=== PATIENT | female | born 1995 | race Caucasian/White ===

== ENCOUNTER 2021-02-26 16:16 | Emergency (ER) | payer OTHER, SELFPAY ==
--- NOTE | ~2021-02-26 | CT_ITS ---
EXAMINATION: CT HEAD WITHOUT CONTRAST CLINICAL INFORMATION: Headache COMPARISON: None TECHNIQUE: Contiguous axial imaging was performed from the skull base to vertex without intravenous administration of contrast. This CT examination was performed using dose optimization techniques as appropriate, variously including the following: *Automated exposure control *Adjustment of mA and/or kV according to patient size (this includes techniques or standardized protocols for targeted exams where dose is matched to indication/reason for exam; i.e. extremities or head) *Use of iterative reconstruction technique DLP: 723 mGy-cm FINDINGS: There is no evidence of acute intracranial hemorrhage or territorial infarction. No abnormal mass effect or midline shift is seen. Miller to white matter differentiation is well preserved. No extra-axial fluid collections are identified. The ventricles are normal in size. There is no abnormal attenuation within the brain parenchyma. There is an expansile appearance to the left skull, including the left sphenoid wing and the clivus extending to the left frontal and parietal skull with internal groundglass matrix. Additional area of expansile appearance involving the left occipital bone. No acute fracture or dislocation. The mastoid air cells and visualized portions of the paranasal sinuses are well aerated. CT/CT head/brain wo con IMPRESSION: No acute intracranial pathology. Expansile appearance to the left skull as described above, with internal groundglass matrix. 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 Recommend clinical correlation and comparison to any prior studies.
[2021-02-26 16:29] VITALS: BP 131/83; PULSE 72; RESP 18; TEMP 37.2; O2SAT 99; BMI 32.8
--- NOTE | 2021-02-26 17:31 | ED.GENADULT ---
HPI - General Adult General Chief complaint: General Medical Stated complaint: Facial swelling Time Seen by Provider: 02/26/21 17:24 History of Present Illness HPI narrative: Patient complains of left-sided headache with mild photophobia that started gradually about 7 days ago and is temporarily relieved when she takes Motrin but then comes back there is no nausea or vomiting there was no trauma there is no fever no other illness no dizziness weakness or fainting no vision changes She also complains of left ear pain She denies any similar headache in the past Related Data Home Medications Medication Instructions Recorded Confirmed norgestimate-ethinyl estradiol 1 tab PO DAILY 11/01/20 0.18 mg/0.215mg/0.25mg-35 mcg(28)tablet Previous Rx's Medication Instructions Recorded acetaminophen 500 mg tablet 1,000 mg PO QID PRN #20 tab 02/26/21 ibuprofen 600 mg tablet 600 mg PO QID PRN #20 tab 02/26/21 Allergies Allergy/AdvReac Type Severity Reaction Status Date / Time No Known Allergies Allergy Verified 02/26/21 15:19 Review of Systems Review of Systems: Positive for left-sided headache and left-sided ear pain Negatives are no fever no chills no dizziness no weakness no fainting no feeling faint no loss of consciousness no trauma no vision change no nausea or vomiting no weakness or numbness no neck pain no chest pain no abdominal pain no skin rash Yes all other systems are reviewed and are negative PMFSH Past Medical History Source: nursing notes reviewed Medical History Otitis externa Surgical History History of eye surgery Family History Family History Father Diabetes Mother No problems noted. Sister In good health Social History Social History Housing: House Alcohol intake: current Patient Tobacco Use Status: Never used Tobacco Advance Directives: No Advance Directives Information Provided: Yes Patient : No service: No Current occupational status: employed Physical Exam Vital Signs: Vital Signs: Last Vital Signs Temp 98.9 F 11/20/21 16:29 Pulse 72 02/26/21 16:29 Resp 18 02/26/21 16:29 BP 131/83 02/26/21 16:29 Pulse Ox 99 02/26/21 16:29 Body Mass Index 32.8 General appearance is no acute distress Head is normocephalic atraumatic The ears are clear with normal tympanic membranes, canals are normal The skin of the forehead is normal but there is some mild tenderness to the left side of the forehead but no obvious redness or swelling The pharynx is clear Pupils equal round reactive to light extraocular motions are intact The neck is supple Respiratory no distress Chest clear to auscultation bilateral Extremities is full range of motion x4 Neuro gait and balance are normal, speech and interaction both expression and understanding are normal, cranial nerves 2-12 intact as tested, cerebellar exam is normal motor is 5/5 x4, sensation is intact and symmetric Course Course Course Narrative: Head CT was done as headache is new and worse than any prior and different than any prior headache CT did not show any bleed or hemorrhage, no mass effect in the brain but it in the skull 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 I was not familiar with this and discussed with attending physician and looked it up and 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 Patient is advised of this result given a copy of the scan and is advised it may or may not be causing her headaches She was given routine treatment for migraine with Reglan Decadron Benadryl and Toradol She was advised that we are not sure of the significance of the fibrous dysplasia and she should follow with primary doctor and may need referral to a neurologic or neurosurgical specialist for further evaluation Discharge Plan Discharge Clinical Impression: Headache Patient Disposition: Home, Self-Care Additional Instructions: We treated you for a possible migraine headache with medications in the ER Our CT scan showed fibrous dysplasia This is a benign condition but we are not experts in it and advise follow with primary care doctor for referral to a neurologic or neurosurgical specialist who might understand the significance of this finding This is not cancer or a tumor so there is no emergent condition Return to the ER any time any worse condition or concerns Prescriptions: New ibuprofen 600 mg tablet 600 mg PO QID PRN (Reason: pain) Qty: 20 RF: 0 acetaminophen 500 mg tablet 1,000 mg PO QID PRN (Reason: pain) Qty: 20 RF: 0 No Action norgestimate-ethinyl estradiol 0.18/0.215/0.25 mg-35 mcg (28) tablet 1 tab PO DAILY RF: 0
[2021-02-26] MEDS: Ketorolac Tromethamine 15 MG/ML VIAL 30 MG IVPUSH (18:37)
[2021-02-26] MEDS: 0.9 % Sodium Chloride 1,000 ML 999 ML IVCONT (18:37)
[2021-02-26] MEDS: dexAMETHasone sod phosphate 10 MG/ML VIAL IVPUSH (18:43)
[2021-02-26] MEDS: diphenhydrAMINE HCL 50 MG/ML VIAL 25 MG IVPUSH (18:44)
== END 2021-02-26 20:22 | disposition home or self-care (01) ==
PROVIDERS: Emergency Provider Emergency Medicine Emergency Medical Services; PCP Internal Medicine
DX: R51.9 Headache, unspecified (principal); R93.0 Abnormal findings on diagnostic imaging of skull and head, not elsewhere classified; M85.08 Fibrous dysplasia (monostotic), other site
CPT/HCPCS: 70450; 96361; 96374; 96375; 99284; J1100; J1200; J1885

== ENCOUNTER 2021-04-19 17:05 | Outpatient (REF) | payer OTHER, SELFPAY ==
--- NOTE | ~2021-04-19 | MR_ITS ---
EXAMINATION: MR BRAIN WITHOUT AND WITH CONTRAST CLINICAL INFORMATION: Headaches. Neurodeficit. COMPARISON: CT head from 02/26/2021. TECHNIQUE: MRI of the brain was obtained using routine sequences without and following the administration of 10 mL of Gadavist intravenous contrast. FINDINGS: Brain Volume: Within normal limits. Structural: No malformations. 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 This cystic mass has increased in size significantly from the previous CT on which it measured 2.4 cm. No brain parenchymal edema is identified and there is no definite midline shift. DWI sequence demonstrates no restricted diffusion. Specifically, there is no evidence for acute or subacute cerebral ischemia. There is no abnormal brain parenchymal enhancement. There is dural enhancement along the medial margin of the above-described osseous cystic mass with some enhancement within the bone surrounding the mass. There is no evidence for hemorrhage, hemosiderin staining or abnormal brain parenchymal mineral deposition. Ventricles and Subarachnoid Spaces: The ventricular system is within normal limits without hydrocephalus. There is crowding of the subarachnoid space in the left frontal region and anterior cranial fossa consistent with mass effect. Orbital Structures: The visualized orbital structures are are remarkable for proptosis on the left consistent with hyperostotic changes involving the left lateral orbital wall consistent with fibrous dysplasia. 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 Visualized right orbit appears grossly unremarkable. Vascular: Normal signal voids are seen in the visualized major intracranial vessels. Sinuses and Osseous Structures: Osseous marrow replacement consistent with fibers dysplasia is seen involving the clivus/bases sphenoid, left sphenoid wing, left orbital roof and left lateral orbital wall and extending into the anterior left frontal bone. These findings are consistent with fibrous dysplasia. Other separate foci of fibrous dysplasia are suspected along the frontoparietal region posteriorly in the midline. There is narrowing of the left orbital apex on the axial images. MR/MR head/brain wo/w con IMPRESSION: 1. 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 However, there is a superimposed, concurrent 5.1 cm expansile cystic lesion arising in the lateral aspect of the left frontal bone containing a blood fluid level suggesting a concomitant aneurysmal bone cyst, which can occur in association with fibrous dysplasia based on published case reports. This cystic lesion has expanded significantly since the previous CT (more than doubled in size) and there is now mass effect on the left frontal lobe without brain parenchymal edema or midline shift. 2. Left-sided proptosis as described above consistent with the above-described process. The [facility] staff will call to confirm receipt of this report with acknowledgement of the findings and any recommendations.
== END 2021-04-19 17:06 | disposition home or self-care (01) ==
LOC: HO.MRI 17:05
PROVIDERS: Visit Provider Physician Assistant
DX: R22.0 Localized swelling, mass and lump, head (principal); H54.7 Unspecified visual loss
CPT/HCPCS: 70553; A9585

== ENCOUNTER 2023-07-03 15:57 | Outpatient (AMB) | payer OTHER, SELFPAY ==
[2023-07-03 16:04] VITALS: BP 116/78; PULSE 58; O2SAT 98; BMI 34.1
--- NOTE | 2023-07-03 16:04 | MHC.PC.OV ---
Vital Signs 07/03/23 16:04 Height 5 ft 5 in Weight 205 lb 0.4 oz BMI 34.1 BP 116/78 Blood Pressure Location Lt brachial Position Sitting Pulse 58 Pulse Source Pulse Oximeter Pulse Oximetry (%) 98 Oxygen Delivery Method Room Air Intake Visit Reasons: Annual Exam Intake Note: Patient is here today for a physical. Business Lawyer Required: No Allergies No Known Allergies Allergy (Verified 07/03/23 16:04) Medication List - Last Reconciled 07/03/23 by Chichi Aggarwal MD norgestimate-ethinyl estradiol 0.18/0.215/0.25 mg-35 mcg (28) 1 tab PO DAILY Tobacco use date assessed: 07/03/23 Dental Screening Dental Screen Date: 07/03/23 Did you have a dental visit in the last 12 months?: Yes Did you have a dental problem in the last 6 months where you did not have access to dental care?: No Was dental information given to patient?: Patient has dentist HPI Annual Exam HPI Details 27-year-old obese female coming in for physical exam last seen in 2021. Review of the notes patient did see the nurse practitioner June last year patient has a history of fibrous dysplasia and was sent to [facility] status post left craniectomy with excision of large bone cyst head CT follow-up stable patient also has anxiety. Neurosurgery notes received 06/05/2022 underwent decompression of the orbit for proptosis by removal of the orbital roof and lateral wall underwent left frontal Jaquelin 1 mm titanium mesh cranioplasty covering 6 cm defect, has chronic tinnitus and fgettng worse. also RLQ pain months , nausea, occ constipation. no dysuria. seen gyne - negative [facility] Medical History (Updated 07/03/23 @ 16:39 by Chichi Aggarwal MD) Annual physical exam Otitis externa Surgical History (Updated 06/26/22 @ 08:39 by JAKE Cobb) Status post craniectomy History of eye surgery Family History (Updated 07/03/23 @ 16:42 by Chichi Aggarwal MD) Father Diabetes Mother No problems noted. Sister In good health Maternal Grandmother Breast cancer Paternal Grandfather Heart attack Social History (Updated 07/03/23 @ 16:42 by Chichi Aggarwal MD) Housing: House Alcohol intake: current Alcohol intake frequency: holidays/special occasions only Comment: 2x a month 1-2 drinks Patient Tobacco Use Status: Never used Tobacco e-Cigarette/Vaping Use: Never Used Second Hand Smoke Exposure: No service: No Current occupational status: employed Current occupational exposures/hazards: No Cognitive needs: No Hearing needs: No Vision needs: No Questionnaire PHQ-9 Over the last 2 weeks, how often have you been bothered by any of the following problems? 1. Little interest or pleasure in doing things: not at all 2. Feeling down, depressed, or hopeless: several days 3. Trouble falling or staying asleep, or sleeping too much: several days 4. Feeling tired or having little energy: several days 5. Poor appetite or overeating: several days 6. Feeling bad about yourself - or that you are a failure or have let yourself or your family down: several days 7. Trouble concentrating on things, such as reading the newspaper or watching television: several days 8. Moving or speaking so slowly that other people could have noticed. Or the opposite - being so fidgety or restless that you have been moving around a lot more than usual: not at all 9. Thoughts that you would be better off or of hurting yourself in some way: not at all Total score: 6 Depression Screening Interpretation: Positive Depression Screening Done: Yes 99045 - PHQ-9 Billing: Yes Source: Developed by Drs. Julio Nguyen, Olga Blackmon, Fermin Landis and colleagues, with an educational jeremías from [employer]. Thrive Questionnaire Date Thrive assessed: 07/03/23 I am a: Patient What is your living situation today?: I have a steady place to live Within the past 12 months, did the food you bought not last and you didn't have the money to get more?: Never true Within the past 12 months, did you worry whether your food would run out before you got money to buy more?: Never true Do you have trouble paying for medicines?: No Do you have trouble getting transportation to medical appointments?: No Do you have trouble paying your heating and electricity bill?: No Do you have trouble taking care of your child, family member or friend?: No Do you have trouble with day-to-day activities such as bathing, preparing meals, shopping, managing finances, etc.?: No Are you currently unemployed and looking for a job?: No Are you interested in more education?: No Please select the resources that you would like help with: None Currently or been in a relationship where the following occur: no concerns reported THRIVE Score: 0 AUDIT C Alcohol Use Questionnaire (AUDIT-C) 1. How often do you have a drink containing alcohol?: Monthly or less 2. How many drinks containing alcohol do you have on a typical day when you are drinking?: 1 or 2 3. How often do you have six or more drinks on one occasion?: Never Total Score: 1 MARTIN-7 AMB Questionnaire MARTIN-7 Date MARTIN - 7 assessed: 07/03/23 Feeling nervous, anxious, or on edge: 2 = More than half the days Not being able to stop or control worryin = More than half the days Worrying too much about different things: 2 = More than half the days Trouble relaxin = More than half the days Being so restless that it is hard to sit still: 1 = Several days Becoming easily annoyed or irritable: 3 = Nearly every day Feeling afraid as if something awful might happen: 2 = More than half the days Total MARTIN-7 score (0-4 normal; 5-9 mild; 10-14 moderate; 15-21 severe): 14 Source: Developed by Drs. Julio Nguyen, Olga Blackmon, Fermin Landis and colleagues, with an educational jeremías from [employer]. MARTIN-7 Assessment Billing MARTIN-7 Assessment Tool: MARTIN-7 Assessment 63973 Review of Systems Const Denies poor appetite and Denies weakness Eyes Denies no additional complaints ENT Reports Normal hearing present, Denies dizziness, Denies nasal congestion, Denies tinnitus and Denies sore throat Card Denies chest pain, Denies syncope, Denies rapid heart rate and Denies dyspnea Resp Denies cough and Denies dyspnea GI Denies change in stool character, Reports constipation, Denies diarrhea, Denies nausea and Denies vomiting Denies urinary frequency, Denies difficulty voiding and Denies dysuria Neuro Reports Normal hearing present, Denies confusion, Denies dizziness, Denies syncope and Denies weakness Psych Denies confusion Physical exam (Primary Care) Vital Signs: Last Vital Signs Pulse 58 07/03/23 16:04 BP 116/78 07/03/23 16:04 Pulse Ox 98 07/03/23 16:04 Oxygen Delivery Method Room Air 07/03/23 16:04 BMI result Body Mass Index 34.1 Tobacco/Smoking Status: Tobacco use Status Tobacco use date assessed 07/03/23 07/03/23 16:05 Patient Tobacco Use Status Never used Tobacco 07/03/23 16:05 e-Cigarette/Vaping Use Never Used 07/03/23 16:05 PHQ-9: PHQ-9 Score PHQ-9: Total score 6 07/03/23 16:17 Depression Screening Interpretation: Positive Thrive Assessment: Date of Thrive Assessment Date Thrive assessed 07/03/23 07/03/23 16:05 Currently or been in a relationship where the following occur: no concerns reported Const General: No confusion Orientation/consciousness: No confusion HENMT Head: Yes normocephalic Ears: external ears normal and TM's normal bilaterally Face and sinus: Yes normal facial exam Mouth: moist mucous membranes Throat: Yes tonsils normal Eyes Conjunctivae: conjunctivae normal Pupils: Equal, round and reactive pupils present and Pupil accommodation reflex normal Direct Ophthalmoscopy: normal light reflex Neck Neck: No lymphadenopathy Thyroid: Thyroid normal Chest Chest palpation & inspection: normal inspection of the chest Resp Effort & Inspection: normal respiratory effort and no audible wheezes Auscultation: clear to auscultation bilaterally, no crackles, no wheezes and lung sounds not diminished Cardio Rate: regular rate Rhythm: regular rhythm Peripheral pulses: radial pulses present and dorsalis pedis present GI Palpation (GI): no masses Auscultation: normal bowel sounds and normoactive bowel sounds Rectal Exam - Female: deferred Skin General skin exam: no rashes or lesions noted Rashes: no rashes Neuro General: No confusion Cranial nerves: Yes Equal, round and reactive pupils present and Yes Normal hearing present Cognition (Neuro): normal cognition Gait exam (Neuro): Normal gait present Motor exam (neuro): 5/5 motor strength present throughout Deep tendon reflexes (DTR's): Right brachioradialis reflex intensity grade: 2+, Left brachioradialis reflex intensity grade: 2+, Right patellar reflex intensity grade: 2+ and Left patellar reflex intensity grade: 2+ Extrem General: No edema Assessment and Plan Assessment & Plan (1) Annual physical exam: Code(s): Z00.00 - Encounter for general adult medical examination without abnormal findings (2) Fibrous dysplasia (monostotic), other site: Comment: May 2021 left frontal craniectomy for removal of fibrous dysplasia bone cyst with cranioplasty Code(s): M85.08 - Fibrous dysplasia (monostotic), other site Plan: Stable continue to follow-up with neurosurgeon on scheduled surveillance. (3) Generalized anxiety disorder: Code(s): F41.1 - Generalized anxiety disorder Plan: looking for a therapist. (4) Tinnitus: Code(s): H93.19 - Tinnitus, unspecified ear Plan: will do hearing test Orders: Orders Complete Blood Count Auto Diff Today Z00.00 - Encounter for general adult medical examination without abnormal findings Comprehensive Met. Panel Today Z00.00 - Encounter for general adult medical examination without abnormal findings Lipid Panel Today E78.00 - Pure hypercholesterolemia, unspecified, Z00.00 - Encounter for general adult medical examination without abnormal findings Vitamin B12 and Folate Today Z00.00 - Encounter for general adult medical examination without abnormal findings Free T4 (Free Thyroxine) Today Z00.00 - Encounter for general adult medical examination without abnormal findings Thyroid Stimulating Hormone Today Z00.00 - Encounter for general adult medical examination without abnormal findings Vitamin D 25-OH Total Today Z00.00 - Encounter for general adult medical examination without abnormal findings Referrals Speech and Hearing Referral H93.19 - Tinnitus, unspecified ear Psychiatry Referral F41.1 - Generalized anxiety disorder Coding Level of Care Code Est Pt Prev Care [id number]([id number]) Diagnoses Annual physical exam Z00.00 Fibrous dysplasia (monostotic), other site M85.08 Generalized anxiety disorder F41.1 Tinnitus H93.19 Additional Codes MARTIN-7 Assessment Billing - MARTIN-7 Assessment Tool: MARTIN-7 Assessment [id number] ([id number])
== END 2023-07-03 17:10 | disposition home or self-care (01) ==
PROVIDERS: Visit Provider Internal Medicine
DX: Z00.00 Encounter for general adult medical examination without abnormal findings (principal); M85.08 Fibrous dysplasia (monostotic), other site; F41.1 Generalized anxiety disorder
CPT/HCPCS: 99395

== ENCOUNTER 2023-10-31 10:15 | Outpatient (REF) | payer OTHER, SELFPAY | END 2023-10-31 10:16 | disposition home or self-care (01) | LOC: HO.SH 10:15 | PROVIDERS: Visit Provider Internal Medicine | DX: Z01.118 Encounter for examination of ears and hearing with other abnormal findings (principal); H93.11 Tinnitus, right ear | CPT/HCPCS: 92550; 92557; 92588 ==

== ENCOUNTER 2024-07-07 17:22 | Outpatient (AMB) | payer OTHER, SELFPAY ==
[2024-07-07 17:28] VITALS: BP 116/76; PULSE 61; TEMP 36.3; O2SAT 97; BMI 33.1
--- NOTE | 2024-07-07 17:28 | MHC.PC.OV ---
Vital Signs 07/07/24 17:28 Height 5 ft 5 in Weight 199 lb BMI 33.1 BP 116/76 Blood Pressure Location Lt brachial Position Sitting Pulse 61 Pulse Source Pulse Oximeter Temp 97.3 F Temp Source Temporal Artery Scan Pulse Oximetry (%) 97 Oxygen Delivery Method Room Air Intake Visit Reasons: annual exam Information Assistant Required: No Accompanied by: Self / Same As Patient Allergies No Known Allergies Allergy (Verified 07/07/24 17:29) Medication List - Last Reconciled 07/07/24 by Chichi Aggarwal MD norgestimate-ethinyl estradiol 0.18/0.215/0.25 mg-35 mcg (28) 1 tab PO DAILY psyllium husk (Daily Fiber) 2 grams PO DAILY Tobacco use date assessed: 07/03/23 Dental Screening Dental Screen Date: 07/03/23 [facility] Medical History (Updated 07/07/24 @ 17:44 by Chichi Aggarwal MD) Annual physical exam Otitis externa Surgical History (Updated 07/07/24 @ 17:44 by Chichi Aggarwal MD) Status post craniectomy History of eye surgery Family History Father Diabetes Mother No problems noted. Sister In good health Maternal Grandmother Breast cancer Paternal Grandfather Heart attack Social History Housing: House Alcohol intake: current Alcohol intake frequency: holidays/special occasions only Comment: 2x a month 1-2 drinks Patient Tobacco Use Status: Never used Tobacco e-Cigarette/Vaping Use: Never Used Second Hand Smoke Exposure: No service: No Current occupational status: employed Current occupational exposures/hazards: No Cognitive needs: No Hearing needs: No Vision needs: No Questionnaire PHQ-9 Over the last 2 weeks, how often have you been bothered by any of the following problems? 1. Little interest or pleasure in doing things: not at all 2. Feeling down, depressed, or hopeless: several days 3. Trouble falling or staying asleep, or sleeping too much: not at all 4. Feeling tired or having little energy: several days 5. Poor appetite or overeating: not at all 6. Feeling bad about yourself - or that you are a failure or have let yourself or your family down: several days 7. Trouble concentrating on things, such as reading the newspaper or watching television: several days 8. Moving or speaking so slowly that other people could have noticed. Or the opposite - being so fidgety or restless that you have been moving around a lot more than usual: not at all 9. Thoughts that you would be better off or of hurting yourself in some way: not at all Total score: 4 68267 - PHQ-9 Billing: Yes Source: Developed by Drs. Julio Nguyen, Olga Blackmon, Fermin Landis and colleagues, with an educational jeremías from [employer]. Thrive Questionnaire Date Thrive assessed: 07/07/24 I am a: Patient What is your living situation today?: I have a place to live, but I am worried about losing it in the future Within the past 12 months, did the food you bought not last and you didn't have the money to get more?: Never true Within the past 12 months, did you worry whether your food would run out before you got money to buy more?: Never true Do you have trouble paying for medicines?: No Do you have trouble getting transportation to medical appointments?: No Do you have trouble paying your heating and electricity bill?: Yes Do you have trouble taking care of your child, family member or friend?: No Do you have trouble with day-to-day activities such as bathing, preparing meals, shopping, managing finances, etc.?: No Are you currently unemployed and looking for a job?: No Are you interested in more education?: Yes Please select the resources that you would like help with: Food, Paying for medicine and Utilities Currently or been in a relationship where the following occur: No concerns reported THRIVE Score: 2 AUDIT C Alcohol Use Questionnaire (AUDIT-C) 1. How often do you have a drink containing alcohol?: 2-4 times a month 2. How many drinks containing alcohol do you have on a typical day when you are drinking?: 1 or 2 3. How often do you have six or more drinks on one occasion?: Never Total Score: 2 MARTIN-7 AMB Questionnaire MARTIN-7 Date MARTIN - 7 assessed: 07/07/24 Feeling nervous, anxious, or on edge: 1 = Several days Not being able to stop or control worryin = Several days Worrying too much about different things: 1 = Several days Trouble relaxin = Several days Being so restless that it is hard to sit still: 0 = Not at all Becoming easily annoyed or irritable: 1 = Several days Feeling afraid as if something awful might happen: 1 = Several days Total MARTIN-7 score (0-4 normal; 5-9 mild; 10-14 moderate; 15-21 severe): 6 Source: Developed by Drs. Julio Nguyen, Olga Blackmon, Fermin Landis and colleagues, with an educational jeremías from [employer]. MARTIN-7 Assessment Billing MARTIN-7 Assessment Tool: MARTIN-7 Assessment 67733 Review of Systems Const Denies poor appetite and Denies weakness Eyes Denies no additional complaints ENT Reports Normal hearing present, Denies dizziness, Denies nasal congestion, Denies tinnitus and Denies sore throat Card Denies chest pain, Denies syncope, Denies rapid heart rate and Denies dyspnea Resp Denies cough and Denies dyspnea GI Denies change in stool character, Reports constipation, Denies diarrhea, Denies nausea and Denies vomiting Denies urinary frequency, Denies difficulty voiding and Denies dysuria Neuro Reports Normal hearing present, Denies confusion, Denies dizziness, Denies syncope and Denies weakness Psych Denies confusion Physical exam (Primary Care) Vital Signs: Last Vital Signs Temp 97.3 F 07/07/24 17:28 Pulse 61 07/07/24 17:28 BP 116/76 07/07/24 17:28 Pulse Ox 97 07/07/24 17:28 Oxygen Delivery Method Room Air 07/07/24 17:28 BMI result Body Mass Index 33.1 Tobacco/Smoking Status: Tobacco use Status Tobacco use date assessed 07/03/23 07/07/24 17:30 Patient Tobacco Use Status Never used Tobacco 07/07/24 17:30 e-Cigarette/Vaping Use Never Used 07/07/24 17:30 PHQ-9: PHQ-9 Score PHQ-9: Total score 4 07/07/24 17:30 Thrive Assessment: Date of Thrive Assessment Date Thrive assessed 07/07/24 07/07/24 17:30 Currently or been in a relationship where the following occur: No concerns reported Const General: No confusion Orientation/consciousness: No confusion HENMT Head: Yes normocephalic Ears: external ears normal and TM's normal bilaterally Face and sinus: Yes normal facial exam Mouth: moist mucous membranes Throat: Yes tonsils normal Eyes Conjunctivae: conjunctivae normal Pupils: Equal, round and reactive pupils present and Pupil accommodation reflex normal Direct Ophthalmoscopy: normal light reflex Neck Neck: No lymphadenopathy Thyroid: Thyroid normal Chest Chest palpation & inspection: normal inspection of the chest Resp Effort & Inspection: normal respiratory effort and no audible wheezes Auscultation: clear to auscultation bilaterally, no crackles, no wheezes and lung sounds not diminished Cardio Rate: regular rate Rhythm: regular rhythm Peripheral pulses: radial pulses present and dorsalis pedis present GI Palpation (GI): no masses Auscultation: normal bowel sounds and normoactive bowel sounds Rectal Exam - Female: deferred Skin General skin exam: no rashes or lesions noted Rashes: no rashes Neuro General: No confusion Cranial nerves: Yes Equal, round and reactive pupils present and Yes Normal hearing present Cognition (Neuro): normal cognition Gait exam (Neuro): Normal gait present Motor exam (neuro): 5/5 motor strength present throughout Deep tendon reflexes (DTR's): Right brachioradialis reflex intensity grade: 2+, Left brachioradialis reflex intensity grade: 2+, Right patellar reflex intensity grade: 2+ and Left patellar reflex intensity grade: 2+ Extrem General: No edema Coding Level of Care Code Est Pt Prev Care 18-39y(86754) Diagnoses Annual physical exam Z00.00 Fibrous dysplasia (monostotic), 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 (2) Fibrous dysplasia (monostotic), other site: Comment: May 2021 left frontal craniectomy for removal of fibrous dysplasia bone cyst with cranioplasty August 2023 another bone surgery September 2023 last neurosurgery visit Code(s): M85.08 - Fibrous dysplasia (monostotic), other site Category: Medical Plan: September 2023 last neurosurgery visit and [address] scan and follow-up (3) Generalized anxiety disorder: Code(s): F41.1 - Generalized anxiety disorder Category: Medical Plan: stable (4) Tinnitus: Code(s): H93.19 - Tinnitus, unspecified ear Category: Medical Plan: patient had unilateral tinnitus and was advised ENT referral Plan History of Present Illness The patient is a 28-year-old female presenting for a wellness examination. She has a past medical history significant for a jealous anxiety disorder, as well as a recent 6-pound weight loss without specific cause. She has unilateral tinnitus, for which a referral to an ENT specialist was made but not yet completed, as she reports the symptoms have subsided. 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 There's a concern over skin integrity and potential need for further surgical intervention. Furthermore, she describes an isolated incident of severe chest pain last week but without any recurrence or associated cardiovascular symptoms. Regarding gastrointestinal health, she experiences regular bowel movements with fiber supplementation, and her urinary habits do not indicate any significant problems. There is a family history of breast cancer (maternal grandmother) and myocardial infarction (grandfather). Health Maintenance - Blood work prior to recent surgery including basic labs; details not explicitly mentioned. - Vaccination status discussed; possible tetanus vaccine needed if not updated. - Encouragement to maintain hydration and balanced nutrition. - Scheduled fasting blood work for evaluation of sugar and cholesterol levels. - Advised against skipping meals and encouraged to avoid sudden dietary changes. - Discussed cardiovascular health, focusing on lifestyle changes for risk reduction. Social History - Alcohol: Occasional social drinking, about twice a month with 1-2 drinks per event. - Tobacco: Never used. - Supplements: Currently taking a fiber supplement, 5 capsules twice a day. - Housing: Resides in [place]. - Family History: Maternal grandmother with history of breast cancer; grandfather with a history of heart attack. Review of Systems - Cardiovascular: Reports a single recent episode of intense chest pain; denies recurrent chest pain, shortness of breath, or palpitations. - Gastrointestinal: Denies ongoing nausea or vomiting; reports gastrointestinal regularity with supplement use. - Neurological: Denies dizziness or passing out. - Genitourinary: Denies nocturia; reports regular urination. 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 Clear to auscultation bilaterally Cardiovascular: Regular rate and rhythm. Normal S1 and S2, patient reported a one-time intense chest pain episode GI: Normal to inspection. Soft to palpation and nontender, patient taking fiber supplements to aid bowel movements Skin: No rashes or lesions noted, patient concerned about skin cleanliness post-surgery Neuro: Patient oriented x3 Extremities: Normal to inspection Results - Labs: Blood work prior to surgery (details unspecified). - Tests: Scheduled fasting blood work for glucose and cholesterol assessment. Plan To address the patient's healthcare needs, I will focus on comprehensive wellness management, emphasizing routine health evaluations and lifestyle modifications. While unilateral tinnitus seems resolved, observation will continue, deferring ENT consultations unless symptoms recede. Monitoring symptoms post-surgical intervention for the aneurysmal cyst, ensuring neurosurgical follow-ups to check structural stability with planned head CT in a year?s time is essential. Evaluating the chest pain's nature points to a musculoskeletal cause without recurrence, but vigilance in promptly addressing any further episodes is important. Scheduled fasting labs will assess her metabolic health, especially given her familial predisposition to cardiovascular conditions. A structured regimen of balanced diet, hydration, and suitable vaccinations including that against tetanus will form her preventive health strategy. Patient was informed and verbally consented to the use of an ambient scribe for clinic note documentation during this visit. Discussion Notes I discussed the patient's concern regarding headaches and tinnitus noting these issues seem linked to her prior surgeries, emphasizing a follow-up plan. For chest pain, I explained the differences between musculoskeletal and cardiac pains, underscoring the importance of reporting persistent or severe episodes. Regarding the family's cardiac history, I stressed the importance of regular screening and lifestyle changes to mitigate risk. I outlined a plan for fasting blood work, enlightening its role in identifying trends in cholesterol and glucose that influence her cardiovascular status. We discussed preventive care, ensuring vaccinations such as tetanus are current, and proposed dietary adjustments alongside fiber supplements to maintain regularity. Follow-up processes and potential consultations were also covered based on evolving symptoms and test results. Patient Instructions - Proceed with scheduled fasting blood work for cholesterol and glucose at the local lab. - Maintain a balanced diet and stay hydrated to promote overall well-being. - Continue taking fiber supplements as described to aid in bowel regularity. - Monitor any recurrence of chest pain and report if it happens again. - Update tetanus vaccine if not current. - Maintain regular neurosurgery follow-up plan. - Report any concerning symptoms immediately for further evaluation. Orders: Orders Vitamin B12 and Folate Today M85.08 - Fibrous dysplasia (monostotic), other site Vitamin D 25-OH Total Today M85.08 - Fibrous dysplasia (monostotic), other site UA CC w/rflx Micro + Cult Today M85.08 - Fibrous dysplasia (monostotic), other site, R30.0 - Dysuria Complete Blood Count Auto Diff Today M85.08 - Fibrous dysplasia (monostotic), other site Comprehensive Met. Panel Today M85.08 - Fibrous dysplasia (monostotic), other site Lipid Panel Today E78.00 - Pure hypercholesterolemia, unspecified, M85.08 - Fibrous dysplasia (monostotic), other site Free T4 (Free Thyroxine) Today M85.08 - Fibrous dysplasia (monostotic), other site Thyroid Stimulating Hormone Today M85.08 - Fibrous dysplasia (monostotic), other site
--- OUTSIDE RECORDS SUMMARY | 2024-07-07 18:16 | XMS_ITS | Clinical Summary ---
Author Organization [facility] Address [address] [place] [id number] Phone Care Team Providers Care Table Games Floor Supervisor Name Role Phone Unavailable Primary Care Provider Unavailabl e Immunizations Immunization Administration Dates Next Due DTaP 5 03/04/2001, 9,08/07/1997, 998,03/10/1997 HPV, Quadrivalent 11/27/2013,11/26/2012,11/27/19 12 Hep A, ped/adol 11/30/2014,11/27/2013 Hep B, ped/adol 08/07/1997,03/10/1997,01/03/1997 Hib (PRP-T) 05/10/1998, 8,05/29/1997, 997 IPV 03/04/2001 Influenza, injectable, trivalent 04/07/2008 MMR 03/04/2001,02/05/1998 Meningococcal Conj (Menactra) MCV4P 11/30/2014,0 11/27/2011 OPV 08/07/1997,05/29/1997,03/10/1997 Tdap 04/07/2008 Varicella 04/07/2008,01/06/1999 Family History Relation Name Status Comments Father Father: Diabete s mellitus, Obesity Mother Mother: Migrain es Other No family histo ry of Asthma, Family history of Diabetes mellitus, No family history of Autism, No family history of Deafness, Family history of Obesity, No family history of Strabismus/amblyopia, No family history of Seizure disorder, No family history of Sudden /MD under age 55, No family history of Elevated cholesterol, No family history of Migraines, No family history of Developmental dislocation of hip, No family history of ADD/ADHD Sister 1 Alive Sister: Alive a nd well, Alive and well Sister 2 Alive Sister: Alive a nd well, Alive and well Social History Tobacco Use Types Packs/Day Years Used Date Smoking Tobacco: Never Comments:Never smoker Comments Unknown Sex and Gender Information Value Date Recorded Sex Assigned at Not on file Legal Sex Female 5:14 PM EDT Gender Identity Not on file Sexual Orientation Not on file Last Filed Vital Signs Vital Sign Reading Time Taken Comments Blood Pressure 117/59 02/17/2016 12:00 AM EST Pulse 59 02/17/2016 12:00 AM EST Temperature 36.8 ??C (98.3 ??F) 02/17/2016 12:[address] Respiratory Rate - - Oxygen Saturation - - Inhaled Oxygen Concentration - - Weight 79.9 kg (176 lb 3.2 oz) 02/17/2016 12:00 AM EST Height 166.4 cm (5' 5.5 ) 02/17/2016 12:00 AM ES T Body Mass Index 28.88 02/17/2016 12:00 AM EST Plan of Treatment Health Maintenance Due Date Last Done Comments DTaP,Tdap,and Td Vaccines (7 - Td or Tdap) 04/07/2018 04/07/2008, 03/04/2001, 08/09/1998, Additional history exists Influenza Vaccines (#1) 2023 04/07/2008 COVID-19 Vaccine ( season) 2023 Hepatitis B Vaccines Completed 08/07/1997, 03/10/1997, 01/03/1997 HIB Vaccines Completed 05/10/1998, 04/1997, 05/29/1997, Additional history exists IPV Vaccines Completed 03/04/2001, 04/1997, 05/29/1997, Additional history exists MMR Vaccines Completed 03/04/2001, 02/05/1998 Varicella Vaccines Completed 04/07/2008, 01/06/1999 HPV Vaccines Completed 11/27/2013, 11/08, 11/27/2011 Hepatitis A Vaccines Completed 11/30/2014, 11/28/19 14 Meningococcal Vaccine Completed 11/30/2014, 012 Men B Vaccine Aged Out No longer elig ible based on patient's age to complete this topic Pneumococcal Vaccine Aged Out No long er eligible based on patient's age to complete this topic
--- OUTSIDE RECORDS SUMMARY | 2024-07-07 18:16 | XMS_ITS | Encounter Summary ---
Author Organization [facility] Address [address] [place] [phone] Phone Care Team Providers Care Pluck Separator Name Role Phone Unavailable Primary Care Provider Unavailabl e Encounter Details Date Type Department Care Team (Late st Contact Info) Description 11/23/2016 Conversion Encounter [facility] - [address] [id number] Social History Tobacco Use Types Packs/Day Years Used Date Smoking Tobacco: Never Comments:Never smoker Comments Unknown Sex and Gender Information Value Date Recorded Sex Assigned at Not on file Legal Sex Female 5:14 PM EDT Gender Identity Not on file Sexual Orientation Not on file documented as of this encounter Plan of Treatment Not on file documented as of this encounter Visit Diagnoses Not on filedocumented in this encounter
== END 2024-07-07 17:57 | disposition home or self-care (01) ==
LOC: HO.HMCH 17:22
PROVIDERS: PCP Internal Medicine; Visit Provider Internal Medicine
DX: Z00.00 Encounter for general adult medical examination without abnormal findings (principal); M85.08 Fibrous dysplasia (monostotic), other site; F41.1 Generalized anxiety disorder; H93.19 Tinnitus, unspecified ear

== ENCOUNTER → 2024-07-07 17:22 | Outpatient (BNVA) | payer OTHER, SELFPAY | PROVIDERS: PCP Internal Medicine; Visit Provider Internal Medicine | DX: Z00.00 Encounter for general adult medical examination without abnormal findings (principal); M85.08 Fibrous dysplasia (monostotic), other site; F41.1 Generalized anxiety disorder; H93.19 Tinnitus, unspecified ear | CPT/HCPCS: 96127 ==